=== PATIENT | female | born 1985 | race Caucasian/White ===

== ENCOUNTER 2017-09-22 15:56 | Emergency (ER) | payer SELFPAY ==
[~2017-09-22] VITALS: Ht 175.3 cm; Wt 74.8 kg
[2017-09-22 16:03] VITALS: BP 119/78
== END 2017-09-22 20:10 | disposition left against medical advice (07) ==
LOC: ER 15:59
DX: S41.112A Laceration without foreign body of left upper arm, initial encounter (principal); Z53.21 Procedure and treatment not carried out due to patient leaving prior to being seen by health care provider; W45.8XXA Other foreign body or object entering through skin, initial encounter; Y93.89 Activity, other specified; Y92.89 Other specified places as the place of occurrence of the external cause; Y99.8 Other external cause status